=== PATIENT | male | born 1975 | race Two or more races ===

== ENCOUNTER → 2017-11-08 | Outpatient (REF) | payer OTHER | LOC: M SMT 13:23 | DX: Z30.2 Encounter for sterilization (principal) ==

== ENCOUNTER → 2022-07-26 | Outpatient (CLI) | payer OTHER | LOC: M LABSMTC 09:28 | PROVIDERS: ATTEND Anesthesiology | DX: Z01.812 Encounter for preprocedural laboratory examination (principal); Z20.822 Contact with and (suspected) exposure to COVID-19 ==

== ENCOUNTER 2022-07-28 11:18 | Day surgery (SDC) | payer OTHER ==
[~2022-07-28] VITALS: Ht 177.8 cm; Wt 96.2 kg
[~2022-07-28 11:18] MED LIST: NS 1,000 ML IV ONE
[2022-07-28] MEDS ORDERED: propofoL 200 MG/20 ML VIAL As Ordered ONE (13:25)
[2022-07-28] MEDS ORDERED: LIDOCAINE 2% INJ 100 MG/5 ML SYRINGE As Ordered ONE (13:25)
[2022-07-28] MEDS ORDERED: fentaNYL 100 MCG/2 ML INJECTION As Ordered ONE (13:38)
[2022-07-28 14:16] VITALS: BP 136/86
== END 2022-07-28 14:17 | disposition home or self-care (01) ==
LOC: M OPP 11:18
PROVIDERS: ATTEND Internal Medicine Gastroenterology
DX: K20.90 Esophagitis, unspecified without bleeding (principal); K22.2 Esophageal obstruction; K44.9 Diaphragmatic hernia without obstruction or gangrene; K21.9 Gastro-esophageal reflux disease without esophagitis; Z80.0 Family history of malignant neoplasm of digestive organs

== ENCOUNTER 2023-07-15 12:02 | Day surgery (SDC) | payer OTHER ==
[~2023-07-15] VITALS: Ht 177.8 cm; Wt 99.3 kg
[~2023-07-15 12:02] MED LIST changes: +OMEP40CA5 PO
[2023-07-15] MEDS ORDERED: fentaNYL 100 MCG/2 ML INJECTION As Ordered ONE (14:21)
[2023-07-15] MEDS ORDERED: propofoL 200 MG/20 ML VIAL As Ordered ONE ×2 (14:22→14:26)
[2023-07-15] MEDS ORDERED: LIDOCAINE 2% 100MG/5ML SDV (FOR ANES.) As Ordered ONE (14:22)
[2023-07-15 14:31] VITALS: TEMP 98.4
[2023-07-15 14:48] VITALS: BP 125/78; O2SAT 94
== END 2023-07-15 15:08 | disposition home or self-care (01) ==
LOC: M OPP 12:02
PROVIDERS: ATTEND Internal Medicine Gastroenterology
DX: K22.2 Esophageal obstruction (principal); K21.00 Gastro-esophageal reflux disease with esophagitis, without bleeding; R13.10 Dysphagia, unspecified; R12 Heartburn; Z79.899 Other long term (current) drug therapy
CPT/HCPCS: 43239; 43249; 88305; J3010

== ENCOUNTER 2023-12-24 12:00 | Day surgery (SDC) | payer OTHER ==
[~2023-12-24] VITALS: Ht 177.8 cm; Wt 97.6 kg
[~2023-12-24 12:00] MED LIST changes: +BUPR-597 PO; -NS 1,000 ML IV ONE; +OMEP-173 PO
[2023-12-24] MEDS: NS 1,000 ML IV ONE (12:15)
[2023-12-24] MEDS ORDERED: LIDOCAINE 2% 100MG/5ML SDV (FOR ANES.) As Ordered ONE (13:07)
[2023-12-24] MEDS ORDERED: propofoL 200 MG/20 ML VIAL As Ordered ONE (13:07)
[2023-12-24 13:29] VITALS: TEMP 97.7
[2023-12-24 13:45] VITALS: BP 116/60; O2SAT 96
== END 2023-12-24 13:51 | disposition home or self-care (01) ==
LOC: M OPP 12:00
PROVIDERS: ATTEND Internal Medicine Gastroenterology
DX: K63.89 Other specified diseases of intestine (principal); K57.30 Diverticulosis of large intestine without perforation or abscess without bleeding; K64.8 Other hemorrhoids; R19.4 Change in bowel habit; R15.9 Full incontinence of feces; Z79.899 Other long term (current) drug therapy